=== PATIENT | male | born 1975 | race African-American/Black ===

== ENCOUNTER 2017-06-09 01:02 | Emergency (ER) | payer MEDICAID ==
[~2017-06-09] VITALS: Ht 188 cm; Wt 76.8 kg
[~2017-06-09 01:02] MED LIST: ATEN25TA PO; BUPR-93 PO; INSLAN SQ; INSU100V SQ; MIRT30 PO; QUET300T2 PO
[2017-06-09 01:03] VITALS: BP 160/120
[2017-06-09 01:17] LABS: GLUCOSE,POINT OF CARE 99 MG/DL (70-110)
== END 2017-06-09 02:40 | disposition left against medical advice (07) ==
LOC: EMS 01:02
DX: G54.6 Phantom limb syndrome with pain (principal); R00.0 Tachycardia, unspecified; E11.9 Type 2 diabetes mellitus without complications; I10 Essential (primary) hypertension; F17.210 Nicotine dependence, cigarettes, uncomplicated; F11.90 Opioid use, unspecified, uncomplicated; Z76.0 Encounter for issue of repeat prescription; Z79.4 Long term (current) use of insulin
CPT/HCPCS: 82962; 99282

== ENCOUNTER 2018-05-23 12:19 | Emergency (ER) | payer MEDICAID ==
[~2018-05-23] VITALS: Ht 185.4 cm; Wt 77.3 kg
[~2018-05-23 12:19] MED LIST changes: -ATEN25TA PO; -BUPR-93 PO; -INSU100V SQ; -MIRT30 PO; -QUET300T2 PO
[2018-05-23] MEDS ORDERED: INSU100V SQ (12:29)
[2018-05-23] MEDS ORDERED: LISI-662 PO (12:29)
[2018-05-23] MEDS ORDERED: INSLAN SQ (12:29)
[2018-05-23 12:35] LABS: GLUCOSE,POINT OF CARE 286 MG/DL (70-110)
[2018-05-23 13:41] VITALS: BP 127/79
[2018-05-23] MEDS ORDERED: KETOROLAC TROMETHAMINE 10 MG TABLET PO ONE (14:00)
== END 2018-05-23 14:23 | disposition home or self-care (01) ==
LOC: EMS 12:19
DX: E11.65 Type 2 diabetes mellitus with hyperglycemia (principal); I10 Essential (primary) hypertension; M79.601 Pain in right arm; M25.512 Pain in left shoulder; F32.9 Major depressive disorder, single episode, unspecified; F17.210 Nicotine dependence, cigarettes, uncomplicated; F11.90 Opioid use, unspecified, uncomplicated; Z76.0 Encounter for issue of repeat prescription; Z79.899 Other long term (current) drug therapy

== ENCOUNTER 2018-06-07 19:39 | Emergency (ER) | payer MEDICAID ==
[~2018-06-07] VITALS: Ht 185.4 cm; Wt 81.8 kg
[~2018-06-07 19:39] MED LIST changes: +INSU100V SQ; +LISI-662 PO
[2018-06-07] MEDS ORDERED: ATOR10TA84 PO (19:56)
[2018-06-07 20:14] LABS: GLUCOSE,POINT OF CARE 103 MG/DL (70-110)
[2018-06-07 20:39] LABS: GLUCOSE,POINT OF CARE 108 MG/DL (70-110)
[2018-06-07 21:14] LABS: GLUCOSE,POINT OF CARE 153 MG/DL (70-110)
[2018-06-07] MEDS ORDERED: ACETAMINOPHEN 500 MG TABLET PO ONE (21:30)
[2018-06-07 21:54] LABS: GLUCOSE,POINT OF CARE 170 MG/DL (70-110)
[2018-06-07 22:29] LABS: GLUCOSE,POINT OF CARE 145 MG/DL (70-110)
[2018-06-07 23:20] LABS: GLUCOSE,POINT OF CARE 177 MG/DL (70-110)
[2018-06-07 23:49] LABS: GLUCOSE,POINT OF CARE 182 MG/DL (70-110)
[2018-06-08 00:26] VITALS: BP 155/79
== END 2018-06-08 00:45 | disposition home or self-care (01) ==
LOC: EMS 19:41
DX: E11.649 Type 2 diabetes mellitus with hypoglycemia without coma (principal); G54.6 Phantom limb syndrome with pain; I10 Essential (primary) hypertension; E78.00 Pure hypercholesterolemia, unspecified; F32.9 Major depressive disorder, single episode, unspecified; F17.210 Nicotine dependence, cigarettes, uncomplicated; Z79.4 Long term (current) use of insulin; Z79.899 Other long term (current) drug therapy
CPT/HCPCS: 82948; 99406

== ENCOUNTER 2020-06-22 16:08 | Emergency (ER) | payer MEDICAID ==
[~2020-06-22] VITALS: Ht 185.4 cm; Wt 77.3 kg
[~2020-06-22 16:08] MED LIST changes: +ATOR10TA84 PO; -LISI-662 PO; +LISI-894 PO
[2020-06-22] MEDS ORDERED: CefTRIAXone SODIUM 1 GM/VIAL IM ONE (16:45)
[2020-06-22] MEDS ORDERED: LIDOCAINE/PF 1% 2 ML VIAL IM ONE (16:45)
[2020-06-22 17:00] VITALS: BP 158/97
== END 2020-06-22 17:08 | disposition home or self-care (01) ==
LOC: EMS 16:08
DX: L02.511 Cutaneous abscess of right hand (principal); L03.011 Cellulitis of right finger
CPT/HCPCS: 26010; 82962; 87070; 87077; 87205; 96372; 99283; J0696; J3490

== ENCOUNTER 2021-10-16 14:09 | Emergency (ER) | payer MEDICAID ==
[~2021-10-16] VITALS: Ht 185.4 cm; Wt 81.8 kg
[2021-10-16] MEDS ORDERED: AMIT75TA55 PO ×2 (14:48→16:30)
[2021-10-16] MEDS ORDERED: ATOR20TA65 PO (14:48)
[2021-10-16] MEDS ORDERED: INSU100V36 SQ ×2 (16:32→16:37)
[2021-10-16] MEDS ORDERED: INSU100I26 SQ (16:34)
[2021-10-16] MEDS ORDERED: ATOR20TA86 PO (16:35)
[2021-10-16 16:52] VITALS: BP 133/85
== END 2021-10-16 16:57 | disposition home or self-care (01) ==
LOC: EMS 14:09
DX: E11.9 Type 2 diabetes mellitus without complications (principal); F32.A Depression, unspecified; E78.00 Pure hypercholesterolemia, unspecified; I10 Essential (primary) hypertension; K44.9 Diaphragmatic hernia without obstruction or gangrene; F17.210 Nicotine dependence, cigarettes, uncomplicated; Z86.19 Personal history of other infectious and parasitic diseases; Z86.14 Personal history of Methicillin resistant Staphylococcus aureus infection; Z89.202 Acquired absence of left upper limb, unspecified level
CPT/HCPCS: 99281; Z7502

== ENCOUNTER 2021-10-18 16:44 | Emergency (ER) | payer MEDICAID ==
[~2021-10-18] VITALS: Ht 185.4 cm; Wt 84.1 kg
[~2021-10-18 16:44] MED LIST changes: +AMIT75TA55 PO; -ATOR10TA84 PO; +ATOR20TA65 PO; +ATOR20TA86 PO; +INSU100I26 SQ; +INSU100V36 SQ; -LISI-894 PO
[2021-10-18] MEDS ORDERED: CEPH-558 PO (18:05)
[2021-10-18 18:16] VITALS: BP 150/85
== END 2021-10-18 18:18 | disposition home or self-care (01) ==
LOC: EMS 16:46
DX: S99.822A Other specified injuries of left foot, initial encounter (principal); E11.9 Type 2 diabetes mellitus without complications; F32.A Depression, unspecified; E78.00 Pure hypercholesterolemia, unspecified; I10 Essential (primary) hypertension; F17.210 Nicotine dependence, cigarettes, uncomplicated; Z89.202 Acquired absence of left upper limb, unspecified level; X58.XXXA Exposure to other specified factors, initial encounter; Y93.89 Activity, other specified; Y92.89 Other specified places as the place of occurrence of the external cause; Y99.8 Other external cause status
CPT/HCPCS: 82962; 99283

== ENCOUNTER 2021-11-09 13:34 | Emergency (ER) | payer MEDICAID ==
[~2021-11-09] VITALS: Ht 185.4 cm; Wt 81.8 kg
[~2021-11-09 13:34] MED LIST changes: +CEPH-558 PO
[2021-11-09] MEDS ORDERED: FERR325T23 PO (13:49)
[2021-11-09] MEDS ORDERED: HYDR10TA31 PO (13:49)
[2021-11-09] MEDS ORDERED: ASPI-1444 PO (13:49)
[2021-11-09] MEDS ORDERED: AMLO10TA55 PO (13:49)
[2021-11-09] MEDS ORDERED: BACITRACIN 28 GM OINTMENT TP ONE (14:30)
[2021-11-09] MEDS ORDERED: DOXY-354 PO (14:47)
[2021-11-09 15:00] VITALS: BP 127/72
== END 2021-11-09 15:30 | disposition home or self-care (01) ==
LOC: EMS 13:38
DX: S80.811A Abrasion, right lower leg, initial encounter (principal); F32.A Depression, unspecified; E11.9 Type 2 diabetes mellitus without complications; E78.00 Pure hypercholesterolemia, unspecified; I10 Essential (primary) hypertension; F17.210 Nicotine dependence, cigarettes, uncomplicated; F19.10 Other psychoactive substance abuse, uncomplicated; Z86.14 Personal history of Methicillin resistant Staphylococcus aureus infection; Z87.19 Personal history of other diseases of the digestive system; Z86.19 Personal history of other infectious and parasitic diseases; Z89.202 Acquired absence of left upper limb, unspecified level; W22.8XXA Striking against or struck by other objects, initial encounter; Y93.89 Activity, other specified; Y92.89 Other specified places as the place of occurrence of the external cause; Y99.8 Other external cause status
CPT/HCPCS: 82962; 99283

== ENCOUNTER 2022-04-19 11:31 | Inpatient (IN) | payer MEDICAID ==
[2022-04-19] VITALS (11 sets, daily range): BP systolic 127–166; BP diastolic 65–80
[~2022-04-19] VITALS: Ht 185.4 cm; Wt 65.8 kg
[~2022-04-19 11:31] MED LIST changes: +AMLO-258 PO; +ASPI-1444 PO; -ATOR20TA86 PO; -CEPH-558 PO; +FERR325T27 PO; +FOLI0.8T2 PO; +HYDR-4174 PO; -INSLAN SQ; -INSU100V SQ; -INSU100V36 SQ
[2022-04-19] MEDS ORDERED: HEPARIN SODIUM,PORCINE 1,000 UNITS/ML VIAL IVP ONE (12:00)
[2022-04-19 12:01] LABS: GLUCOSE,POINT OF CARE 61 MG/DL (70-110)
[2022-04-19 12:29] LABS: BASOPHILS % (AUTO) 1.5 % (0.0-2.0); EOSINOPHILS % (AUTO) 2.6 % (1.0-6.0); HEMATOCRIT 26.2 % (41-53); HEMOGLOBIN 8.6 g/dL (13.5-17.5); LYMPHOCYTES # (AUTO) 0.8 K/uL (1.0-4.8); LYMPHOCYTES % (AUTO) 12.6 % (22.0-44.0); MEAN CORPUSCULAR HEMOGLOBIN 29.5 pg (26.0-34.0); MEAN CORPUSCULAR HGB CONC 32.8 G/dL (31.0-37.0); MEAN CORPUSCULAR VOLUME 90 fL (80-100); MONOCYTES # (AUTO) 0.8 K/uL (0.1-1.0); MONOCYTES % (AUTO) 12.6 % (2.0-9.0); NEUTROPHILS # (AUTO) 4.6 K/uL (1.8-7.7); NEUTROPHILS % (AUTO) 70.7 % (40.0-70.0); PLATELET COUNT (AUTO) 550 K/uL (150-450); RED BLOOD CELL COUNT(AUTO) 2.91 MIL/uL (4.50-5.90); RED CELL DISTRIBUTION WIDTH 15.8 % (11.5-14.5)
[2022-04-19] MEDS ORDERED: ALBUTEROL SULFATE 2.5 MG/0.5 ML NEB SOLUTION NEB ONE (12:30)
[2022-04-19] MEDS ORDERED: IPRATROPIUM BROMIDE 0.5 MG/2.5 ML NEB SOLUTION NEB ONE (12:30)
[2022-04-19 12:31] LABS: COVID AG,FIA SOURCE NASAL SWAB
[2022-04-19 12:36] LABS: CALCIUM, TOTAL 8.5 mg/dL (8.8-10.5); CREATININE 18.88 mg/dL (0.60-1.30); POTASSIUM 4.7 mmol/L (3.5-5.1)
[2022-04-19 12:37] LABS: APPEARANCE,URINE CLEAR (CLEAR); BILIRUBIN,URINE NEGATIVE (NEGATIVE); GLUCOSE, URINE (UA) 70-100 mg/dL (NEGATIVE); KETONES,URINE NEGATIVE (NEGATIVE); LEUKOCYTE ESTERASE ,URINE NEGATIVE (NEGATIVE); NITRATE,URINE NEGATIVE (NEGATIVE); OCCULT BLOOD,URINE SMALL (NEGATIVE); PH,URINE 6.5 (5.0-8.0); PROTEIN,URINE >600,SEE CONFIRM mg/dL (NEGATIVE); SPECIFIC GRAVITIY, URINE 1.022 (1.003-1.030); UROBILINOGEN,URINE <=1.0 mg/dL (<=1.0)
[2022-04-19 12:53] LABS: SULFOSALICYLIC ACID,URINE 4+ (Negative)
[2022-04-19 12:54] LABS: BACTERIA,URINE Moderate /HPF (None Seen); RBC,URINE 0-2 /HPF (0-2); SQUAMOUS EPITHELIAL CELL,UR Few /LPF (None Seen); WBC,URINE 0-2 /HPF (0-5)
[2022-04-19 12:56] LABS: INFLUENZA TYPE A NEGATIVE FOR TYPE A (NEGATIVE); INFLUENZA TYPE B NEGATIVE FOR TYPE B (NEGATIVE)
[2022-04-19 13:01] LABS: BILIRUBIN,TOTAL 0.3 mg/dL (0.1-1.0); TOTAL PROTEIN, SERUM 7.5 g/dL (6.4-8.2)
[2022-04-19] MEDS ORDERED: HYDR-4061 PO (13:27)
[2022-04-19] MEDS ORDERED: ONDANSETRON HCL 4 MG/2 ML VIAL IVP PRN (13:30)
[2022-04-19] MEDS ORDERED: BISACODYL 10 MG RECTAL RECTAL SUPPOSITORY PR PRN (13:30)
[2022-04-19] MEDS ORDERED: DEXTROSE 50%-WATER 25 GM/50 ML SYRINGE IVP PRN (13:30)
[2022-04-19] MEDS: CARVEDILOL 6.25 MG TABLET PO SCH ×2 (13:46→21:44)
[2022-04-19] MEDS: AmLODIPine BESYLATE 10 MG TABLET PO SCH (13:46)
[2022-04-19] MEDS ORDERED: CARI-493 PO (14:47)
[2022-04-19] MEDS ORDERED: OS500 PO (14:47)
[2022-04-19 14:51] LABS: GLUCOSE,POINT OF CARE 123 MG/DL (70-110)
[2022-04-19] MEDS: FOLIC ACID/VIT B COMPLEX AND C TABLET PO SCH (17:45)
[2022-04-19] MEDS: CALCITRIOL 0.25 MCG CAPSULE PO SCH (17:45)
[2022-04-19] MEDS ORDERED: SODIUM CHLORIDE 0.9% 2,000 ML ONE (17:57)
[2022-04-19] MEDS: INSULIN LISPRO 100 UNITS/ML SQ PRN ×2 (18:17→21:43)
[2022-04-19] MEDS ORDERED: HEPARIN SODIUM,PORCINE 1,000 UNITS/ML VIAL IVCATH ONE ×2 (20:15)
[2022-04-19] MEDS: DOCUSATE SODIUM 100 MG CAPSULE PO SCH (21:00)
[2022-04-19] MEDS: HEPARIN SODIUM,PORCINE 5,000 UNITS/ML VIAL SQ SCH (21:44)
[2022-04-19] MEDS: ACETAMINOPHEN 325 MG TABLET PO PRN (23:16)
[2022-04-20] VITALS (16 sets, daily range): BP systolic 130–162; BP diastolic 63–82
[2022-04-20] MEDS: ACETAMINOPHEN 325 MG TABLET PO PRN (03:22)
[2022-04-20 06:21] LABS: GLUCOMETER DEV NAME(LOC) 5S.2B; GLUCOSE,POINT OF CARE 199 MG/DL (70-110)
[2022-04-20 07:17] LABS: CALCIUM, TOTAL 7.8 mg/dL (8.8-10.5); CREATININE 10.82 mg/dL (0.60-1.30); POTASSIUM 4.6 mmol/L (3.5-5.1)
[2022-04-20] MEDS ORDERED: CARVEDILOL 6.25 MG TABLET PO SCH (09:00)
[2022-04-20] MEDS ORDERED: CARV12 PO (09:00)
[2022-04-20] MEDS: DOCUSATE SODIUM 100 MG CAPSULE PO SCH ×2 (09:00→21:00)
[2022-04-20] MEDS: CALCITRIOL 0.25 MCG CAPSULE PO SCH (09:35)
[2022-04-20] MEDS: PANTOPRAZOLE SODIUM 40 MG DR TABLET PO SCH (09:35)
[2022-04-20] MEDS: FOLIC ACID/VIT B COMPLEX AND C TABLET PO SCH (09:35)
[2022-04-20] MEDS: HEPARIN SODIUM,PORCINE 5,000 UNITS/ML VIAL SQ SCH ×2 (09:37→21:00)
[2022-04-20] MEDS: AmLODIPine BESYLATE 10 MG TABLET PO SCH (09:37)
[2022-04-20] MEDS ORDERED: HEPARIN SODIUM,PORCINE 1,000 UNITS/ML VIAL IVP ONE (12:00)
[2022-04-20] MEDS: INSULIN LISPRO 100 UNITS/ML SQ PRN ×2 (12:17→21:25)
[2022-04-20] MEDS: HYDROCODONE/ACETAMINOPHEN 5-325 MG TABLET PO PRN ×2 (15:00→18:49)
[2022-04-20 20:06] LABS: GLUCOMETER DEV NAME(LOC) 5S.2B; GLUCOSE,POINT OF CARE 189 MG/DL (70-110)
[2022-04-20] MEDS: CARVEDILOL 12.5 MG TABLET PO SCH (21:22)
[2022-04-20 22:16] LABS: GLUCOMETER DEV NAME(LOC) 5S.2B; GLUCOSE,POINT OF CARE 192 MG/DL (70-110)
[2022-04-21] VITALS (15 sets, daily range): BP systolic 122–170; BP diastolic 68–83
[2022-04-21] MEDS: HYDROCODONE/ACETAMINOPHEN 5-325 MG TABLET PO PRN ×4 (03:56→23:46)
[2022-04-21] MEDS: CALCITRIOL 0.25 MCG CAPSULE PO SCH (08:43)
[2022-04-21] MEDS: PANTOPRAZOLE SODIUM 40 MG DR TABLET PO SCH (08:43)
[2022-04-21] MEDS: CARVEDILOL 12.5 MG TABLET PO SCH ×2 (08:44→21:00)
[2022-04-21] MEDS: FOLIC ACID/VIT B COMPLEX AND C TABLET PO SCH (08:44)
[2022-04-21] MEDS: AmLODIPine BESYLATE 10 MG TABLET PO SCH (08:44)
[2022-04-21] MEDS: HEPARIN SODIUM,PORCINE 5,000 UNITS/ML VIAL SQ SCH ×2 (08:50→21:00)
[2022-04-21] MEDS: DOCUSATE SODIUM 100 MG CAPSULE PO SCH ×2 (09:00→21:00)
[2022-04-21 10:06] LABS: GLUCOMETER DEV NAME(LOC) 5S.2B; GLUCOSE,POINT OF CARE 117 MG/DL (70-110)
[2022-04-21] MEDS: BUMETANIDE 0.25 MG/ML 10 ML VIAL IVP SCH ×2 (11:17→21:00)
[2022-04-21] MEDS ORDERED: HEPARIN SODIUM,PORCINE 1,000 UNITS/ML VIAL IVP ONE (12:00)
[2022-04-21] MEDS: INSULIN LISPRO 100 UNITS/ML SQ PRN (12:21)
[2022-04-21 17:26] LABS: GLUCOMETER DEV NAME(LOC) 5N.1C; GLUCOSE,POINT OF CARE 155 MG/DL (70-110)
[2022-04-21] MEDS ORDERED: IOHEXOL 350 MG/ML 100 ML VIAL ONE (17:59)
[2022-04-21] MEDS ORDERED: SODIUM CHLORIDE 0.9% 100 ML ONE (17:59)
[2022-04-21 21:56] LABS: GLUCOMETER DEV NAME(LOC) 5S.1B; GLUCOSE,POINT OF CARE 126 MG/DL (70-110)
[2022-04-22 04:00] VITALS: BP 169/84
[2022-04-22] MEDS: HYDROCODONE/ACETAMINOPHEN 5-325 MG TABLET PO PRN ×3 (06:28→21:20)
[2022-04-22] MEDS: INSULIN LISPRO 100 UNITS/ML SQ PRN ×4 (06:32→21:20)
[2022-04-22 07:56] VITALS: BP 168/83
[2022-04-22] MEDS: FOLIC ACID/VIT B COMPLEX AND C TABLET PO SCH (08:52)
[2022-04-22] MEDS: CALCITRIOL 0.25 MCG CAPSULE PO SCH (08:52)
[2022-04-22] MEDS: AmLODIPine BESYLATE 10 MG TABLET PO SCH (08:52)
[2022-04-22] MEDS: PANTOPRAZOLE SODIUM 40 MG DR TABLET PO SCH (08:52)
[2022-04-22] MEDS: DOCUSATE SODIUM 100 MG CAPSULE PO SCH ×2 (08:52→21:20)
[2022-04-22] MEDS: CARVEDILOL 12.5 MG TABLET PO SCH ×2 (08:52→21:21)
[2022-04-22] MEDS: BUMETANIDE 0.25 MG/ML 10 ML VIAL IVP SCH (08:53)
[2022-04-22] MEDS: HEPARIN SODIUM,PORCINE 5,000 UNITS/ML VIAL SQ SCH ×2 (08:53→21:21)
[2022-04-22] MEDS: EPOETIN ALFA 10,000 UNITS/ML 2 ML VIAL SQ SCH (08:54)
[2022-04-22 11:25] VITALS: BP 168/86
[2022-04-22 12:36] LABS: PROTHROMBIN TIME 10.9 SEC (9.4-11.6)
[2022-04-22 15:26] VITALS: BP 156/76
[2022-04-22 19:35] VITALS: BP 145/75
[2022-04-22 21:11] LABS: GLUCOMETER DEV NAME(LOC) 5S.2B; GLUCOSE,POINT OF CARE 200 MG/DL (70-110)
[2022-04-23] VITALS (16 sets, daily range): BP systolic 116–200; BP diastolic 72–99
[2022-04-23] MEDS ORDERED: SODIUM CHLORIDE 0.9% 2,000 ML ONE (07:56)
[2022-04-23] MEDS: BUMETANIDE 0.25 MG/ML 10 ML VIAL IVP SCH ×4 (09:00→20:38)
[2022-04-23] MEDS: CARVEDILOL 12.5 MG TABLET PO SCH ×2 (09:00→12:06)
[2022-04-23] MEDS: AmLODIPine BESYLATE 10 MG TABLET PO SCH ×2 (09:00→12:06)
[2022-04-23] MEDS: HEPARIN SODIUM,PORCINE 5,000 UNITS/ML VIAL SQ SCH ×2 (09:00→20:39)
[2022-04-23] MEDS: DOCUSATE SODIUM 100 MG CAPSULE PO SCH ×2 (09:00→20:38)
[2022-04-23] MEDS: PANTOPRAZOLE SODIUM 40 MG DR TABLET PO SCH (12:06)
[2022-04-23] MEDS: FOLIC ACID/VIT B COMPLEX AND C TABLET PO SCH (12:07)
[2022-04-23] MEDS: CALCITRIOL 0.25 MCG CAPSULE PO SCH (12:07)
[2022-04-23] MEDS: HYDROCODONE/ACETAMINOPHEN 5-325 MG TABLET PO PRN ×2 (13:52→20:39)
[2022-04-23] MEDS: INSULIN LISPRO 100 UNITS/ML SQ PRN ×2 (16:20→20:41)
[2022-04-23 23:11] LABS: GLUCOMETER DEV NAME(LOC) 5N.1C; GLUCOSE,POINT OF CARE 160 MG/DL (70-110)
[2022-04-24 00:11] VITALS: BP 112/71
[2022-04-24 04:25] VITALS: BP 136/71
[2022-04-24 06:07] LABS: GLUCOMETER DEV NAME(LOC) 5S.1B; GLUCOSE,POINT OF CARE 152 MG/DL (70-110)
[2022-04-24] MEDS: INSULIN LISPRO 100 UNITS/ML SQ PRN ×4 (06:18→19:52)
[2022-04-24 07:25] VITALS: BP 148/73
[2022-04-24] MEDS: HEPARIN SODIUM,PORCINE 5,000 UNITS/ML VIAL SQ SCH ×2 (08:18→19:56)
[2022-04-24] MEDS: EPOETIN ALFA 10,000 UNITS/ML 2 ML VIAL SQ SCH (08:18)
[2022-04-24] MEDS: PANTOPRAZOLE SODIUM 40 MG DR TABLET PO SCH (08:19)
[2022-04-24] MEDS: DOCUSATE SODIUM 100 MG CAPSULE PO SCH ×2 (08:19→19:51)
[2022-04-24] MEDS: FOLIC ACID/VIT B COMPLEX AND C TABLET PO SCH (08:19)
[2022-04-24] MEDS: CARVEDILOL 12.5 MG TABLET PO SCH ×2 (08:19→19:51)
[2022-04-24] MEDS: CALCITRIOL 0.25 MCG CAPSULE PO SCH (08:19)
[2022-04-24] MEDS: BUMETANIDE 0.25 MG/ML 10 ML VIAL IVP SCH ×2 (08:20→19:51)
[2022-04-24] MEDS: HYDROCODONE/ACETAMINOPHEN 5-325 MG TABLET PO PRN ×2 (08:34→15:38)
[2022-04-24 10:46] LABS: BASOPHILS % (AUTO) 0.9 % (0.0-2.0); EOSINOPHILS % (AUTO) 2.4 % (1.0-6.0); HEMATOCRIT 28.4 % (41-53); HEMOGLOBIN 9.3 g/dL (13.5-17.5); LYMPHOCYTES # (AUTO) 1.4 K/uL (1.0-4.8); LYMPHOCYTES % (AUTO) 15.9 % (22.0-44.0); MEAN CORPUSCULAR HEMOGLOBIN 29.3 pg (26.0-34.0); MEAN CORPUSCULAR HGB CONC 32.7 G/dL (31.0-37.0); MEAN CORPUSCULAR VOLUME 90 fL (80-100); MONOCYTES # (AUTO) 0.9 K/uL (0.1-1.0); NEUTROPHILS # (AUTO) 6.4 K/uL (1.8-7.7); NEUTROPHILS % (AUTO) 70.8 % (40.0-70.0); PLATELET COUNT (AUTO) 516 K/uL (150-450); RED BLOOD CELL COUNT(AUTO) 3.17 MIL/uL (4.50-5.90); RED CELL DISTRIBUTION WIDTH 15.4 % (11.5-14.5)
[2022-04-24 16:00] VITALS: BP 168/82
[2022-04-24] MEDS ORDERED: HEPARIN SODIUM,PORCINE 1,000 UNITS/ML VIAL IVP ONE (16:26)
[2022-04-24 18:57] LABS: GLUCOMETER DEV NAME(LOC) 5N.1C; GLUCOSE,POINT OF CARE 186 MG/DL (70-110)
[2022-04-24 19:47] VITALS: BP 174/86
[2022-04-24 23:06] LABS: GLUCOMETER DEV NAME(LOC) 5S.1B; GLUCOSE,POINT OF CARE 212 MG/DL (70-110)
[2022-04-24 23:49] LABS: CALCIUM, TOTAL 8.8 mg/dL (8.8-10.5); CREATININE 10.13 mg/dL (0.60-1.30); POTASSIUM 5.3 mmol/L (3.5-5.1)
[2022-04-25] VITALS (13 sets, daily range): BP systolic 97–189; BP diastolic 48–100
[2022-04-25] MEDS: INSULIN LISPRO 100 UNITS/ML SQ PRN ×3 (05:26→17:41)
[2022-04-25] MEDS: DOCUSATE SODIUM 100 MG CAPSULE PO SCH ×2 (07:44→21:00)
[2022-04-25] MEDS: BUMETANIDE 0.25 MG/ML 10 ML VIAL IVP SCH (07:44)
[2022-04-25] MEDS: CARVEDILOL 12.5 MG TABLET PO SCH ×2 (07:44→21:24)
[2022-04-25] MEDS: AmLODIPine BESYLATE 10 MG TABLET PO SCH (07:44)
[2022-04-25] MEDS: CALCITRIOL 0.25 MCG CAPSULE PO SCH (08:23)
[2022-04-25] MEDS: HYDROCODONE/ACETAMINOPHEN 5-325 MG TABLET PO PRN ×2 (08:23→17:38)
[2022-04-25] MEDS: FOLIC ACID/VIT B COMPLEX AND C TABLET PO SCH (08:23)
[2022-04-25] MEDS: HEPARIN SODIUM,PORCINE 5,000 UNITS/ML VIAL SQ SCH ×2 (08:23→21:24)
[2022-04-25] MEDS: PANTOPRAZOLE SODIUM 40 MG DR TABLET PO SCH (08:23)
[2022-04-25 08:51] LABS: GLUCOMETER DEV NAME(LOC) 5N.1C; GLUCOSE,POINT OF CARE 207 MG/DL (70-110)
[2022-04-25 08:51] LABS: GLUCOMETER DEV NAME(LOC) 5N.1C; GLUCOSE,POINT OF CARE 210 MG/DL (70-110)
[2022-04-25 17:31] LABS: GLUCOMETER DEV NAME(LOC) 5N.1C; GLUCOSE,POINT OF CARE 193 MG/DL (70-110)
[2022-04-25] MEDS: BUMETANIDE 0.25 MG/ML 4 ML VIAL IVP SCH (21:30)
[2022-04-26 00:10] VITALS: BP 113/64
[2022-04-26 00:19] VITALS: BP 146/81
[2022-04-26 03:21] LABS: GLUCOMETER DEV NAME(LOC) 5S.2B; GLUCOSE,POINT OF CARE 238 MG/DL (70-110)
[2022-04-26 03:24] LABS: APPEARANCE,URINE HAZY (CLEAR); BILIRUBIN,URINE NEGATIVE (NEGATIVE); GLUCOSE, URINE (UA) >=1000 mg/dL (NEGATIVE); KETONES,URINE NEGATIVE (NEGATIVE); LEUKOCYTE ESTERASE ,URINE NEGATIVE (NEGATIVE); NITRATE,URINE NEGATIVE (NEGATIVE); OCCULT BLOOD,URINE SMALL (NEGATIVE); PH,URINE 6.5 (5.0-8.0); PROTEIN,URINE >600,SEE CONFIRM mg/dL (NEGATIVE); SPECIFIC GRAVITIY, URINE 1.048 (1.003-1.030); UROBILINOGEN,URINE <=1.0 mg/dL (<=1.0)
[2022-04-26 03:33] LABS: SULFOSALICYLIC ACID,URINE 3+ (Negative)
[2022-04-26 03:36] LABS: BACTERIA,URINE Moderate /HPF (None Seen); SQUAMOUS EPITHELIAL CELL,UR Few /LPF (None Seen); WBC,URINE 0-2 /HPF (0-5)
[2022-04-26 04:26] VITALS: BP 156/83
[2022-04-26] MEDS: INSULIN LISPRO 100 UNITS/ML SQ PRN ×2 (06:06→12:05)
[2022-04-26 08:00] VITALS: BP 186/90
[2022-04-26] MEDS: AmLODIPine BESYLATE 10 MG TABLET PO SCH (08:39)
[2022-04-26] MEDS: CALCITRIOL 0.25 MCG CAPSULE PO SCH (08:39)
[2022-04-26] MEDS: CARVEDILOL 12.5 MG TABLET PO SCH (08:39)
[2022-04-26] MEDS: PANTOPRAZOLE SODIUM 40 MG DR TABLET PO SCH (08:39)
[2022-04-26] MEDS: DOCUSATE SODIUM 100 MG CAPSULE PO SCH (08:39)
[2022-04-26] MEDS: HEPARIN SODIUM,PORCINE 5,000 UNITS/ML VIAL SQ SCH (08:39)
[2022-04-26] MEDS: FOLIC ACID/VIT B COMPLEX AND C TABLET PO SCH (08:39)
[2022-04-26] MEDS: BUMETANIDE 0.25 MG/ML 4 ML VIAL IVP SCH (08:40)
[2022-04-26] MEDS: EPOETIN ALFA 10,000 UNITS/ML 2 ML VIAL SQ SCH (08:41)
[2022-04-26] MEDS: HYDROCODONE/ACETAMINOPHEN 5-325 MG TABLET PO PRN (09:31)
[2022-04-26 11:09] VITALS: BP 156/91
[2022-04-26] MEDS ORDERED: AmLODIPine BESYLATE 10 MG TABLET PO SCH (11:15)
[2022-04-26] MEDS ORDERED: CloNIDine HCL 0.1 MG TABLET PO PRN (11:15)
[2022-04-26] MEDS ORDERED: CefTRIAXone 1 GM/DEXTROSE 50 ML IV ONE (11:30)
[2022-04-26 11:56] LABS: GLUCOMETER DEV NAME(LOC) 5S.2B; GLUCOSE,POINT OF CARE 197 MG/DL (70-110)
[2022-04-26] MEDS ORDERED: SODIUM CHLORIDE 0.9% 250 ML IV ONE (12:10)
[2022-04-26 17:46] LABS: GLUCOMETER DEV NAME(LOC) 5S.2B; GLUCOSE,POINT OF CARE 266 MG/DL (70-110)
== END 2022-04-26 16:50 | disposition home health service (06) | DRG 425 ==
LOC: EMS 11:34 → ICUN 13:54 → 5S 14:31
PROVIDERS: ADMIT Internal Medicine; ATTEND Internal Medicine
PROC: 5A1D70Z Performance of Urinary Filtration, Intermittent, Less than 6 Hours Per Day (ICD-10-PCS; 2022-04-19)
PROC: 5A1D70Z Performance of Urinary Filtration, Intermittent, Less than 6 Hours Per Day (ICD-10-PCS; 2022-04-21)
PROC: 0W993ZZ Drainage of Right Pleural Cavity, Percutaneous Approach (ICD-10-PCS; principal; 2022-04-23)
PROC: 5A1D70Z Performance of Urinary Filtration, Intermittent, Less than 6 Hours Per Day (ICD-10-PCS; 2022-04-23)
PROC: 5A1D70Z Performance of Urinary Filtration, Intermittent, Less than 6 Hours Per Day (ICD-10-PCS; 2022-04-24)
PROC: 5A1D70Z Performance of Urinary Filtration, Intermittent, Less than 6 Hours Per Day (ICD-10-PCS; 2022-04-26)
DX: E87.79 Other fluid overload (principal); I31.39 Other pericardial effusion (noninflammatory); I12.0 Hypertensive chronic kidney disease with stage 5 chronic kidney disease or end stage renal disease; E44.0 Moderate protein-calorie malnutrition; J90 Pleural effusion, not elsewhere classified; D63.1 Anemia in chronic kidney disease; N18.6 End stage renal disease; N25.81 Secondary hyperparathyroidism of renal origin; E10.22 Type 1 diabetes mellitus with diabetic chronic kidney disease; R09.02 Hypoxemia; E78.00 Pure hypercholesterolemia, unspecified; F32.A Depression, unspecified; K21.9 Gastro-esophageal reflux disease without esophagitis; Z20.822 Contact with and (suspected) exposure to COVID-19; Z83.3 Family history of diabetes mellitus; Z79.82 Long term (current) use of aspirin; Z79.899 Other long term (current) drug therapy; Z79.4 Long term (current) use of insulin; Z91.15 Patient's noncompliance with renal dialysis; Z91.199 Patient's noncompliance with other medical treatment and regimen due to unspecified reason; Z99.2 Dependence on renal dialysis; Z68.1 Body mass index [BMI] 19.9 or less, adult
CPT/HCPCS: 32555; 71045; 71250; 71275; 76700; 76942; 80048; 80053; 81001; 81002; 82550; 82962; 83880; 83970; 84100; 84484; 85025; 85379; 85610; 85730; 87040; 87075; 87081; 87086; 87186; 87205; 87340; 87804; 90935; 93005; 94644; 99291; J0696; J0885; J1644; J3490; J7030; J7050; Q9967; 36415-L1; 36415-TC; 87070; J7613

== ENCOUNTER 2022-07-02 05:10 | Emergency (ER) | payer MEDICAID ==
[~2022-07-02] VITALS: Ht 188 cm; Wt 66.4 kg
[~2022-07-02 05:10] MED LIST changes: +CARI-493 PO; +CARV12 PO; -FOLI0.8T2 PO; +OS500 PO
[2022-07-02 06:06] LABS: GLUCOSE,POINT OF CARE 240 MG/DL (70-110)
[2022-07-02 06:12] VITALS: BP 220/84
[2022-07-02 06:54] LABS: BASOPHILS % (AUTO) 0.5 % (0.0-2.0); EOSINOPHILS % (AUTO) 3.7 % (1.0-6.0); HEMATOCRIT 24.6 % (41-53); HEMOGLOBIN 8.1 g/dL (13.5-17.5); LYMPHOCYTES % (AUTO) 17.6 % (22.0-44.0); MEAN CORPUSCULAR HEMOGLOBIN 30.4 pg (26.0-34.0); MEAN CORPUSCULAR HGB CONC 32.9 G/dL (31.0-37.0); MEAN CORPUSCULAR VOLUME 92 fL (80-100); MONOCYTES # (AUTO) 0.6 K/uL (0.1-1.0); MONOCYTES % (AUTO) 10.8 % (2.0-9.0); NEUTROPHILS # (AUTO) 3.7 K/uL (1.8-7.7); NEUTROPHILS % (AUTO) 67.4 % (40.0-70.0); PLATELET COUNT (AUTO) 268 K/uL (150-450); RED BLOOD CELL COUNT(AUTO) 2.66 MIL/uL (4.50-5.90); RED CELL DISTRIBUTION WIDTH 15.9 % (11.5-14.5)
[2022-07-02 07:01] LABS: PROTHROMBIN TIME 10.7 SEC (9.4-11.6)
[2022-07-02 07:11] LABS: CALCIUM, TOTAL 8.7 mg/dL (8.8-10.5); CREATININE 11.77 mg/dL (0.60-1.30); POTASSIUM 4.5 mmol/L (3.5-5.1)
[2022-07-02 07:13] LABS: ALBUMIN 3.2 g/dL (3.4-5.0); BILIRUBIN,TOTAL 0.3 mg/dL (0.1-1.0)
== END 2022-07-02 07:00 | disposition left against medical advice (07) ==
LOC: EMS 05:10
DX: D64.9 Anemia, unspecified (principal); N18.6 End stage renal disease; Z99.2 Dependence on renal dialysis; R00.0 Tachycardia, unspecified; E11.65 Type 2 diabetes mellitus with hyperglycemia; I11.0 Hypertensive heart disease with heart failure; I50.9 Heart failure, unspecified; E78.00 Pure hypercholesterolemia, unspecified; K21.9 Gastro-esophageal reflux disease without esophagitis; Z86.14 Personal history of Methicillin resistant Staphylococcus aureus infection; K80.20 Calculus of gallbladder without cholecystitis without obstruction; F15.90 Other stimulant use, unspecified, uncomplicated
CPT/HCPCS: 80053; 82962; 83880; 84484; 85025; 85610; 85730; 93005; 99284

== ENCOUNTER 2022-07-05 12:58 | Emergency (ER) | payer MEDICAID ==
[~2022-07-05] VITALS: Ht 185.4 cm; Wt 81.8 kg
[2022-07-05 13:26] LABS: GLUCOSE,POINT OF CARE 64 MG/DL (70-110)
[2022-07-05 13:30] VITALS: BP 158/84
[2022-07-05 13:51] LABS: BASOPHILS % (AUTO) 0.8 % (0.0-2.0); EOSINOPHILS % (AUTO) 1.6 % (1.0-6.0); HEMATOCRIT 21.1 % (41-53); LYMPHOCYTES # (AUTO) 1.2 K/uL (1.0-4.8); LYMPHOCYTES % (AUTO) 15.6 % (22.0-44.0); MEAN CORPUSCULAR HEMOGLOBIN 30.2 pg (26.0-34.0); MEAN CORPUSCULAR HGB CONC 32.3 G/dL (31.0-37.0); MEAN CORPUSCULAR VOLUME 93 fL (80-100); MONOCYTES # (AUTO) 0.6 K/uL (0.1-1.0); MONOCYTES % (AUTO) 7.8 % (2.0-9.0); NEUTROPHILS # (AUTO) 5.7 K/uL (1.8-7.7); NEUTROPHILS % (AUTO) 74.2 % (40.0-70.0); PLATELET COUNT (AUTO) 219 K/uL (150-450); RED BLOOD CELL COUNT(AUTO) 2.26 MIL/uL (4.50-5.90); RED CELL DISTRIBUTION WIDTH 16.3 % (11.5-14.5)
[2022-07-05 13:56] LABS: HEMOGLOBIN 6.8 g/dL (13.5-17.5)
[2022-07-05 14:20] LABS: ALBUMIN 3.2 g/dL (3.4-5.0); BILIRUBIN,TOTAL 0.4 mg/dL (0.1-1.0); CALCIUM, TOTAL 8.3 mg/dL (8.8-10.5); CREATININE 18.96 mg/dL (0.60-1.30); TOTAL PROTEIN, SERUM 7.5 g/dL (6.4-8.2)
[2022-07-05 14:24] LABS: POTASSIUM 6.6 mmol/L (3.5-5.1)
== END 2022-07-05 13:53 | disposition left against medical advice (07) ==
LOC: EMS 13:09
DX: E11.22 Type 2 diabetes mellitus with diabetic chronic kidney disease (principal); I13.0 Hypertensive heart and chronic kidney disease with heart failure and stage 1 through stage 4 chronic kidney disease, or unspecified chronic kidney disease; N18.9 Chronic kidney disease, unspecified; R53.1 Weakness; F32.A Depression, unspecified; E78.00 Pure hypercholesterolemia, unspecified; F15.90 Other stimulant use, unspecified, uncomplicated; Z98.890 Other specified postprocedural states
CPT/HCPCS: 80053; 82550; 82962; 83880; 84484; 85025; 85610; 85730; 93005; 99284

== ENCOUNTER 2022-07-19 17:21 | Emergency (ER) | payer MEDICAID ==
[~2022-07-19] VITALS: Ht 188 cm; Wt 75.0 kg
[2022-07-19 17:47] VITALS: BP 158/79
== END 2022-07-19 18:13 | disposition left against medical advice (07) ==
LOC: EMS 17:21
DX: R21 Rash and other nonspecific skin eruption (principal); Z53.21 Procedure and treatment not carried out due to patient leaving prior to being seen by health care provider
CPT/HCPCS: 99281; Z7502